=== PATIENT | male | born 1950 | race Caucasian/White ===

== ENCOUNTER → 2020-12-30 | Outpatient (REF) | payer BC, MEDICARE, OTHER ==
[2020-12-30 14:32] LABS: APPEARANCE, URINE CLEAR (CLEAR); BACTERIA, URINE AUTO NEGATIVE (NEGATIVE); BILIRUBIN, URINE AUTO NEGATIVE (NEGATIVE); BLOOD, URINE BLOOD NEGATIVE (NEGATIVE); COLOR, URINE STRAW (YELLOW); GLUCOSE, URINE (UA) AUTO NEGATIVE (NEGATIVE); KETONE, URINE AUTO NEGATIVE (NEGATIVE); LEUKOCYTE ESTERASE, URINE AUTO NEGATIVE (NEGATIVE); NITRITE, URINE AUTO NEGATIVE (NEGATIVE); PROTEIN, URINE AUTO NEGATIVE (NEGATIVE); RBC, URINE AUTO 0 /HPF (0-3); SPECIFIC GRAVITY URINE AUTO 1.006 (1.002-1.035); SQUAMOUS EPITHELIAL CELL UR AU 0 /HPF (0-6); UROBILINOGEN, URINE AUTO 0.2 mg/dL (0.0-2.0); WBC, URINE AUTO 0 /HPF (0-3)
== END ==
LOC: M SMT 12:55
PROVIDERS: ATTEND Urology
DX: R97.20 Elevated prostate specific antigen [PSA] (principal); Z12.6 Encounter for screening for malignant neoplasm of bladder

== ENCOUNTER → 2022-02-09 | Outpatient (REF) | payer MEDICARE, BC ==
[2022-02-09 13:57] LABS: APPEARANCE, URINE MANUAL CLEAR (CLEAR); COLOR, URINE MANUAL YELLOW (YELLOW)
[2022-02-09 13:58] LABS: BILIRUBIN, URINE MANUAL NEGATIVE (NEGATIVE); BLOOD URINE MANUAL NEGATIVE (NEGATIVE); GLUCOSE, URINE (UA) MANUAL NEGATIVE (NEGATIVE); KETONE, URINE MANUAL NEGATIVE (NEGATIVE); LEUKOCYTE ESTERASE, URINE MAN NEGATIVE (NEGATIVE); NITRITE, URINE MANUAL NEGATIVE (NEGATIVE); PROTEIN, URINE MANUAL NEGATIVE (NEGATIVE); UROBILINOGEN, URINE MANUAL NORMAL (NORMAL)
== END ==
LOC: M SMT 12:50
PROVIDERS: ATTEND Urology
DX: Z80.52 Family history of malignant neoplasm of bladder (principal)

== ENCOUNTER → 2023-09-28 | Outpatient (CLI) | payer MEDICARE, BC | LOC: M RAD 12:10 | PROVIDERS: ATTEND Otolaryngology | DX: J32.0 Chronic maxillary sinusitis (principal) ==

== ENCOUNTER 2024-02-15 06:34 | Day surgery (SDC) | payer MEDICARE, BC ==
[~2024-02-15] VITALS: Ht 172.7 cm; Wt 76.2 kg
[~2024-02-15 06:34] MED LIST: CETI10CH PO; LISI10TA22 PO; VALA1TAB5 PO
[2024-02-15] MEDS ORDERED: LR 1,000 ML IV SCH ×2 (07:00→10:45)
[2024-02-15] MEDS ORDERED: LIDOCAINE W/EPINEPHRINE 1% 20ML VIAL As Ordered ONE (08:11)
[2024-02-15] MEDS ORDERED: SODIUM CHLORIDE 0.9% NASAL GEL 15GM (AYR) As Ordered ONE (08:11)
[2024-02-15] MEDS ORDERED: fentaNYL 100 MCG/2 ML INJECTION As Ordered ONE (08:14)
[2024-02-15] MEDS ORDERED: SUGAMMADEX SODIUM 500 MG/5 ML VIAL (BRIDION) As Ordered ONE (08:14)
[2024-02-15] MEDS ORDERED: LIDOCAINE 2% 100MG/5ML SDV (FOR ANES.) As Ordered ONE (08:14)
[2024-02-15] MEDS ORDERED: HYDROmorphone HCL 2MG/ML 1ML VIAL As Ordered ONE (08:14)
[2024-02-15] MEDS ORDERED: MIDAZOLAM INJ 2MG/2ML VIAL As Ordered ONE (08:14)
[2024-02-15] MEDS ORDERED: ROCURONIUM BROMIDE 50MG/5ML VIAL As Ordered ONE (08:15)
[2024-02-15] MEDS ORDERED: ONDANSETRON 4MG 2ML VIAL As Ordered ONE (08:16)
[2024-02-15] MEDS: EPINEPHrine 1MG/ML INJ 30ML MD-VIAL As Ordered ONE (09:42)
[2024-02-15] MEDS: METHYLENE BLUE 0.5% (5MG/ML) 10 ML AMP (PROVAYBLUE) As Ordered ONE (09:42)
[2024-02-15] MEDS ORDERED: ePHEDrine SULFATE 25 MG/5 ML(5MG/ML) SYRINGE As Ordered ONE (09:58)
[2024-02-15] MEDS ORDERED: oxyCODONE 5MG TAB PO PRN (10:45)
[2024-02-15] MEDS ORDERED: ONDANSETRON 4MG 2ML VIAL IV PRN (10:45)
[2024-02-15] MEDS ORDERED: fentaNYL 100 MCG/2 ML INJECTION IV PRN (10:45)
[2024-02-15] MEDS ORDERED: HYDROMORPHONE HCL 0.5 MG/ 0.5 ML SYRINGE IV PRN (10:45)
[2024-02-15 11:40] VITALS: BP 153/89; TEMP 97.5; O2SAT 95
== END 2024-02-15 12:10 | disposition home or self-care (01) ==
LOC: M SDC 06:34
PROVIDERS: ATTEND Otolaryngology
DX: J34.2 Deviated nasal septum (principal); J34.3 Hypertrophy of nasal turbinates; R09.81 Nasal congestion; I10 Essential (primary) hypertension; R13.10 Dysphagia, unspecified; Z79.899 Other long term (current) drug therapy; Z90.89 Acquired absence of other organs; Z87.891 Personal history of nicotine dependence
CPT/HCPCS: 30520; 30801; 88300; 93005; J0171; J1100; J1170; J2250; J2405; J3010; Q9968